=== PATIENT | male | born 1980 | race Caucasian/White ===

== ENCOUNTER 2020-09-07 15:19 | Emergency (ER) | payer MEDICAID, SELFPAY | END 2020-09-07 19:23 | disposition left against medical advice (07) | PROVIDERS: Emergency Provider Emergency Medicine | DX: Z20.2 Contact with and (suspected) exposure to infections with a predominantly sexual mode of transmission (principal) ==

== ENCOUNTER 2020-09-08 02:38 | Inpatient (IN) | payer MEDICAID, SELFPAY ==
--- NOTE | ~2020-09-08 | US_ITS ---
EXAMINATION: US SCROTUM CLINICAL INFORMATION: Pain with swelling and erythema. COMPARISON: September 21, 2018 TECHNIQUE: A sonogram of the scrotum was performed assessing parsons-scale appearance and color Doppler flow. Spectral Doppler analysis of the arterial and venous flow were performed in the testes bilaterally. FINDINGS: RIGHT: Right testicle measures 4.2 x 3.1 x 3.6 cm, volume 23.1 mL. No focal testicular parenchymal lesions are visualized. Spectral Doppler analysis of the arterial and venous flow is patent in the right testis. There is increased vascularity present to both the testicle and epididymis. Right epididymal head is normal in size. No varicocele is seen. No hydrocele present. Right epididymal Doppler flow is increased. LEFT: Left testicle measures 5.0 x 3.1 x 2.6 cm, volume 20.6 mL. No focal testicular parenchymal lesions are visualized. Spectral Doppler analysis of the arterial and venous flow is present in the left testis. There is mildly increased vascular flow within the left testicle. Left epididymal head is normal in size. No varicocele is seen. Small complex hydrocele present. Left epididymal Doppler flow is mildly increased. US/US scrotum doppler IMPRESSION: No suspicious testicular mass. Increased vascular flow to both epididymides and testes, right greater than left, consistent with epididymal orchitis.
--- NOTE | ~2020-09-08 | US_ITS ---
EXAMINATION: US SCROTUM CLINICAL INFORMATION: Pain with swelling and erythema. COMPARISON: September 21, 2018 TECHNIQUE: A sonogram of the scrotum was performed assessing parsons-scale appearance and color Doppler flow. Spectral Doppler analysis of the arterial and venous flow were performed in the testes bilaterally. FINDINGS: RIGHT: Right testicle measures 4.2 x 3.1 x 3.6 cm, volume 23.1 mL. No focal testicular parenchymal lesions are visualized. Spectral Doppler analysis of the arterial and venous flow is patent in the right testis. There is increased vascularity present to both the testicle and epididymis. Right epididymal head is normal in size. No varicocele is seen. No hydrocele present. Right epididymal Doppler flow is increased. LEFT: Left testicle measures 5.0 x 3.1 x 2.6 cm, volume 20.6 mL. No focal testicular parenchymal lesions are visualized. Spectral Doppler analysis of the arterial and venous flow is present in the left testis. There is mildly increased vascular flow within the left testicle. Left epididymal head is normal in size. No varicocele is seen. Small complex hydrocele present. Left epididymal Doppler flow is mildly increased. US/US scrotum IMPRESSION: No suspicious testicular mass. Increased vascular flow to both epididymides and testes, right greater than left, consistent with epididymal orchitis.
[2020-09-08 03:50] VITALS: BP 103/63; PULSE 104; RESP 20; TEMP 36.3; O2SAT 98; BMI 26.2
--- NOTE | 2020-09-08 06:19 | ED.MALEGU ---
HPI - Male Genitourinary General Chief complaint: Urogenital-Male Stated complaint: groin pain Time Seen by Provider: 09/08/20 06:19 Source: patient Mode of arrival: ambulatory History of Present Illness HPI Narrative: This is a 40-year-old male who presents with 3-4 days of increasing redness, swelling, pain to his scrotum as well as dysuria. In addition, he reports subjective fevers. Otherwise, denies any shortness of breath, chest pain, abdominal pain or diarrhea. Related Data Allergies Allergy/AdvReac Type Severity Reaction Status Date / Time No Known Allergies Allergy Unverified 01/05/20 16:51 Review of Systems Review of Systems: Pertinent positives and negatives as stated in HPI 10 point review of systems is otherwise negative. PMFSH Past Medical History Source: nursing notes reviewed Social History Social History Advance Directives: No Advance Directives Information Provided: No Physical Exam Vital Signs: Vital Signs: Last Vital Signs Temp 97.4 F 09/08/20 03:50 Pulse 104 H 09/08/20 03:50 Resp 20 09/08/20 03:50 BP 103/63 09/08/20 03:50 Pulse Ox 98 09/08/20 03:50 Body Mass Index 26.2 VITAL SIGNS: Reviewed. GENERAL: Well developed, well nourished, in no acute distress. HEAD: Normocephalic/atraumatic, EYES: PERRLA, EOMI intact without pain, no nystagmus/pallor/icterus noted EARS: Ext canals without abnormality, TMs non-bulging and non-erythematous NOSE: Nares patent bilateral OROPHARYNX: no oral lesions noted, posterior pharynx clear and non-erythematous without noted tonsillar enlargement/erythema/exudates NECK: Supple, no adenopathy LUNGS: Normal breath sounds. No adventitious sounds or accessory muscle use. SpO2<> CARDIOVASCULAR: Regular rate and rhythm without noted murmurs, no JVD or lower extremity edema. ABDOMEN: Soft, non-tender, non-distended with bowel sounds. No rigidity. No guarding. No palpable masses or hernias noted : Uncircumcised penis, examination of the scrotum demonstrates erythema and swelling without ulceration and minimal tenderness on palpation, there is a large mass/induration of the right testicle without pain along the epididymis. Course Course Course Narrative: 40-year-old male with history and clinical presentation of orchitis doubt testicular torsion but will evaluate with scrotal Doppler as well as STI screening and urinalysis. Basic labs were also ordered. Signed out to Dr Lemus: f/u UA, labs, US
[2020-09-08 07:48] LABS: Glucose Urine UA NEG (NEG); Leukocyte Esterase Urine TRACE (NEG); Nitrite Urine NEG (NEG); PH 6.5 (5.0-8.0); Specific Gravity - Urine 1.025 (1.005-1.025); UACC Culture Trigger YES; Urine Blood 2+ (NEG); Urine Ketones NEG (NEG); Urine Protein 1+ MG/DL (NEG-TRACE)
[2020-09-08 07:49] LABS: Appearance Urine HAZY; Color Urine DARK YELLOW
[2020-09-08 08:00] LABS: Mucus Urine 1+ /LPF; Squamous Epithelial Cell Urine 1+ /LPF; UACC CULT YES
[2020-09-08] MEDS: levoFLOXacin 750 MG TABLET PO (08:47)
[2020-09-08 08:50] VITALS: BP 100/60; PULSE 88; RESP 20; TEMP 37.2; O2SAT 96
[2020-09-08 08:52] LABS: MANUAL DIFF FLAG NO
[2020-09-08 08:55] LABS: Basophils Percent Auto 0.2 % (0-2); Eosinophils Absolute Auto 0.1 X10*3/uL (0.0-0.4); Eosinophils Percent Auto 0.4 % (0-4); Hematocrit 34.8 % (42-52); Hemoglobin 11.6 g/dl (14.0-18.0); Imm Gran Abs Auto 0.11 X10*3/uL (0.00-0.03); Imm Gran Pct Auto 0.6 % (0.0-0.4); Lymphocytes Absolute Auto 2.7 X10*3/uL (1.2-4.9); Mean Corpuscular HGB Conc 33.3 g/dl (31.0-36.0); Mean Corpuscular Hemoglobin 28.9 pg (27.0-33.0); Mean Corpuscular Volume 86.8 fL (80-98); Monocytes Absolute Auto 1.4 X10*3/uL (0.1-1.2); Monocytes Percent Auto 7.2 % (2-11); Neutrophils Absolute Auto 15.2 X10*3/uL (2.0-8.3); Neutrophils Percent Auto 77.6 % (45-73); Platelet Count 221 X10*3/uL (160-400); Red Blood Count 4.01 X10*6/uL (4.60-5.80); Red Cell Distribution Width 12.3 % (11.0-16.0); White Blood Count 19.6 X10*3/uL (4.8-10.8)
--- NOTE | 2020-09-08 09:11 | ED.MALEGU ---
HPI - Male Genitourinary General Chief complaint: Urogenital-Male Stated complaint: groin pain Time Seen by Provider: 09/08/20 06:19 Source: patient Mode of arrival: ambulatory Related Data Previous Rx's Medication Instructions Recorded doxycycline hyclate 100 mg PO Q12H #20 tab 09/08/20 Allergies Allergy/AdvReac Type Severity Reaction Status Date / Time No Known Allergies Allergy Unverified 01/05/20 16:51 [facility] Past Medical History Medical History (Updated 09/08/20 @ 12:05 by Alok Salgado MD) Cocaine abuse Heroin abuse History of gonorrhea Surgical History Status post ORIF of fracture of ankle Social History Social History (Updated 09/08/20 @ 12:05 by Alok Salgado MD) Smoking Status: Current every day smoker Packs Per Day: 1 Substance Use Type: Crack/Cocaine and Heroin Advance Directives: No Advance Directives Information Provided: No Physical Exam Vital Signs: Vital Signs: Last Vital Signs Temp 98.9 F 09/08/20 08:50 Pulse 79 09/08/20 10:37 Resp 20 09/08/20 10:37 BP 103/53 L 09/08/20 10:37 Pulse Ox 97 09/08/20 10:37 Body Mass Index 26.2 Course Reevaluation(s) Reevaluation #1: Patient was signed out to me 07:[address] Mendoza we are waiting for the result today ultrasound, we waiting for the results of the labs as well . Ultrasound showed epididymo-orchitis, I consulted the Urology he recommend admission because elevated white count we will administer IV ceftriaxone and IV doxycycline. Case was discussed with the hospitalist who accepted the patient MDM - Male Genitourinary Lab Data Result diagrams: 09/08/20 08:38 09/08/20 08:38 Labs: Lab Results 09/08/20 09/08/20 09/08/20 Range/Units 07:34 07:34 08:38 WBC 19.6 H (4.8-10.8) X10*3/uL RBC 4.01 L (4.60-5.80) X10*6/uL Hgb 11.6 L (14.0-18.0) g/dl Hct 34.8 L (42-52) % MCV 86.8 (80-98) fL MCH 28.9 (27.0-33.0) pg MCHC 33.3 (31.0-36.0) g/dl RDW 12.3 (11.0-16.0) % Plt Count 221 (160-400) X10*3/uL MPV 9.0 L (9.4-12.4) fL Immature Gran % (Auto) 0.6 H (0.0-0.4) % Neut % (Auto) 77.6 H (45-73) % Lymph % (Auto) 14.0 L (20-40) % [place] % (Auto) 7.2 (2-11) % Eos % (Auto) 0.4 (0-4) % Baso % (Auto) 0.2 (0-2) % Lymph # (Auto) 2.7 (1.2-4.9) X10*3/uL [place] # (Auto) 1.4 H (0.1-1.2) X10*3/uL Eos # (Auto) 0.1 (0.0-0.4) X10*3/uL Baso # (Auto) 0.0 (0.0-0.2) X10*3/uL Abs Immat Gran (auto) 0.11 H (0.00-0.03) X10*3/uL Absolute Neuts (auto) 15.2 H (2.0-8.3) X10*3/uL Absolute Nucleated RBC 0.000 (0.0-0.012) X10*3/uL Nucleated RBC % (auto) 0.0 (0.0-0.2) /100WBC Sodium (135-145) mmol/L Potassium (3.3-5.1) mmol/L Chloride (96-108) mmol/L Carbon Dioxide (22-29) mmol/L Anion Gap (12-20) BUN (9-16) mg/dL Creatinine (0.5-1.4) mg/dL Estim Creat Clear Calc Estimated GFR Random Glucose (60-115) mg/dL Calcium (8.4-10.2) mg/dL Total Bilirubin (0.0-1.0) mg/dL AST (5-37) U/L ALT (0-40) U/L Alkaline Phosphatase (39-117) U/L Total Protein (6.5-8.0) g/dL Albumin (3.5-5.0) g/dL Urine Color DARK YELLOW Urine Appearance HAZY Urine pH 6.5 (5.0-8.0) Ur Specific [place] 1.025 (1.005-1.025) Urine Protein 1+ H (NEG-TRACE) MG/DL Urine Glucose (UA) NEG (NEG) MG/DL Urine Ketones NEG (NEG) MG/DL Urine Blood 2+ H (NEG) Urine Nitrite NEG (NEG) Ur Leukocyte Esterase TRACE H (NEG) Urine RBC 5-9 H (0) /HPF Urine WBC 15-29 H (0-4) /HPF Ur Squamous Epith Cells 1+ /LPF Urine Bacteria NONE /LPF Urine Mucus 1+ /LPF Chlam trachomat DNA PCR NOT DETECTED (Not Detect.) N.gonorrhoeae DNA (PCR) DETECTED A (Not Detect.) 09/08/20 Range/Units 08:38 WBC (4.8-10.8) X10*3/uL RBC (4.60-5.80) X10*6/uL Hgb (14.0-18.0) g/dl Hct (42-52) % MCV (80-98) fL MCH (27.0-33.0) pg MCHC (31.0-36.0) g/dl RDW (11.0-16.0) % Plt Count (160-400) X10*3/uL MPV (9.4-12.4) fL Immature Gran % (Auto) (0.0-0.4) % Neut % (Auto) (45-73) % Lymph % (Auto) (20-40) % [place] % (Auto) (2-11) % Eos % (Auto) (0-4) % Baso % (Auto) (0-2) % Lymph # (Auto) (1.2-4.9) X10*3/uL [place] # (Auto) (0.1-1.2) X10*3/uL Eos # (Auto) (0.0-0.4) X10*3/uL Baso # (Auto) (0.0-0.2) X10*3/uL Abs Immat Gran (auto) (0.00-0.03) X10*3/uL Absolute Neuts (auto) (2.0-8.3) X10*3/uL Absolute Nucleated RBC (0.0-0.012) X10*3/uL Nucleated RBC % (auto) (0.0-0.2) /100WBC Sodium 134 L (135-145) mmol/L Potassium 3.4 (3.3-5.1) mmol/L Chloride 98 (96-108) mmol/L Carbon Dioxide 30 H (22-29) mmol/L Anion Gap 9 L (12-20) BUN 12 (9-16) mg/dL Creatinine 0.68 (0.5-1.4) mg/dL Estim Creat Clear Calc 131.6 Estimated GFR > 60 Random Glucose 107 (60-115) mg/dL Calcium 8.5 (8.4-10.2) mg/dL Total Bilirubin 0.6 (0.0-1.0) mg/dL AST 24 (5-37) U/L ALT 20 (0-40) U/L Alkaline Phosphatase 70 (39-117) U/L Total Protein 7.5 (6.5-8.0) g/dL Albumin 3.5 (3.5-5.0) g/dL Urine Color Urine Appearance Urine pH (5.0-8.0) Ur Specific [place] (1.005-1.025) Urine Protein (NEG-TRACE) MG/DL Urine Glucose (UA) (NEG) MG/DL Urine Ketones (NEG) MG/DL Urine Blood (NEG) Urine Nitrite (NEG) Ur Leukocyte Esterase (NEG) Urine RBC (0) /HPF Urine WBC (0-4) /HPF Ur Squamous Epith Cells /LPF Urine Bacteria /LPF Urine Mucus /LPF Chlam trachomat DNA PCR (Not Detect.) N.gonorrhoeae DNA (PCR) (Not Detect.) Discharge Plan Discharge Clinical Impression: Epididymoorchitis Patient Disposition: Admitted As Inpatient
[2020-09-08 09:37] LABS: Alanine Aminotransferase 20 U/L (0-40); Albumin Level 3.5 g/dL (3.5-5.0); Alkaline Phosphatase 70 U/L (39-117); Anion Gap 9 (12-20); Aspartate Amino Transferase 24 U/L (5-37); Bilirubin Total 0.6 mg/dL (0.0-1.0); Blood Urea Nitrogen 12 mg/dL (9-16); Calcium 8.5 mg/dL (8.4-10.2); Carbon Dioxide 30 mmol/L (22-29); Chloride 98 mmol/L (96-108); Creatinine Clr Calc Pharmacy 131.6; Estimated Glomerular Filt Rate > 60; Glucose Random 107 mg/dL (60-115); Potassium 3.4 mmol/L (3.3-5.1); Sodium 134 mmol/L (135-145); Total Protein 7.5 g/dL (6.5-8.0)
--- NOTE | 2020-09-08 09:55 | PM.UROCN ---
History of Present Illness Consult details Consult date: 09/08/20 Review of Systems Review of Systems: eoidimorchitis Yes all other systems are reviewed and are negative [facility] Social History Social History Advance Directives: No Advance Directives Information Provided: No Meds Allergies Allergy/AdvReac Type Severity Reaction Status Date / Time No Known Allergies Allergy Unverified 01/05/20 16:51 Physical Exam Vital Signs: Vital Signs: Last Vital Signs Temp 98.9 F 09/08/20 08:50 Pulse 88 09/08/20 08:50 Resp 20 09/08/20 08:50 BP 100/60 09/08/20 08:50 Pulse Ox 96 09/08/20 08:50 Body Mass Index 26.2 : Other: epidimorctitis Results Labs Result diagrams: 09/08/20 08:38 09/08/20 08:38 Labs: Abnormal lab results 09/08/20 09/08/20 09/08/20 Range/Units 07:34 08:38 08:38 WBC 19.6 H (4.8-10.8) X10*3/uL RBC 4.01 L (4.60-5.80) X10*6/uL Hgb 11.6 L (14.0-18.0) g/dl Hct 34.8 L (42-52) % MPV 9.0 L (9.4-12.4) fL Immature Gran % (Auto) 0.6 H (0.0-0.4) % Neut % (Auto) 77.6 H (45-73) % Lymph % (Auto) 14.0 L (20-40) % [place] # (Auto) 1.4 H (0.1-1.2) X10*3/uL Abs Immat Gran (auto) 0.11 H (0.00-0.03) X10*3/uL Absolute Neuts (auto) 15.2 H (2.0-8.3) X10*3/uL Sodium 134 L (135-145) mmol/L Carbon Dioxide 30 H (22-29) mmol/L Anion Gap 9 L (12-20) Urine Protein 1+ H (NEG-TRACE) MG/DL Urine Blood 2+ H (NEG) Ur Leukocyte Esterase TRACE H (NEG) Urine RBC 5-9 H (0) /HPF Urine WBC 15-29 H (0-4) /HPF Short CBC 09/08/20 Range/Units 08:38 WBC 19.6 H (4.8-10.8) X10*3/uL Hgb 11.6 L (14.0-18.0) g/dl Hct 34.8 L (42-52) % Plt Count 221 (160-400) X10*3/uL BMP 09/08/20 08:38 Sodium 134 L Potassium 3.4 Chloride 98 Carbon Dioxide 30 H BUN 12 Creatinine 0.68 Calcium 8.5 Liver Function 09/08/20 Range/Units 08:38 Total Bilirubin 0.6 (0.0-1.0) mg/dL AST 24 (5-37) U/L ALT 20 (0-40) U/L Alkaline Phosphatase 70 (39-117) U/L Albumin 3.5 (3.5-5.0) g/dL Urine 09/08/20 Range/Units 07:34 Urine Color DARK YELLOW Urine Appearance HAZY Urine pH 6.5 (5.0-8.0) Ur Specific [place] 1.025 (1.005-1.025) Urine Protein 1+ H (NEG-TRACE) MG/DL Urine Glucose (UA) NEG (NEG) MG/DL All other labs normal. Assessment and Plan (1) Epididymoorchitis: Status: Acute Procedures Date of Service Date of Service: 09/08/20
[2020-09-08 10:21] LABS: CT PCR NOT DETECTED (Not Detect.); NG PCR DETECTED (Not Detect.)
[2020-09-08] MEDS: cefTRIAXone sodium 1 GM in 0.9 % Sodium Chloride 50 ML IV (10:33)
[2020-09-08 10:37] VITALS: BP 103/53; PULSE 79; RESP 20; O2SAT 97
--- NOTE | 2020-09-08 10:40 | PC.NURSE ---
Dr Lemus at bedside and discussingplan for admission for IV abx, pt declines to stay and reports he will leave AMA. Rocephin infusing, Doxy to follow 20g to right wrist.
[2020-09-08] MEDS: Doxycycline Hyclate 100 MG in 0.9 % Sodium Chloride 250 ML 166.67 MG IV (11:09)
--- NOTE | 2020-09-08 11:58 | PM.IMHP ---
History of Present Illness Date of Service: 09/08/20 Chief Complaint: Painful scrotum 40-year-old male with prior history of treated gonorrhea in September 2018 and polysubstance abuse who presents with 4 days of right-sided scrotal swelling, pain, and redness. He endorses dysuria. He has been having fevers as high as 101 along with chills. He denies new sexual partner. He does not have a primary care doctor. He denies chest pain, shortness of breath, or abdominal pain. He endorses nausea. He uses heroin and cocaine and also smokes a pack of cigarettes daily. In the ED, he was noted to be septic with leukocytosis and tachycardia. Urinalysis demonstrated pyuria and microscopic hematuria. US demonstrated increased vascular flow to both epididymides and testes, right greater than left, consistent with epididymo-orchitis. was consulted and admission was recommended for sepsis from epididymo-orchitis. Gonorrhea NAAT was positive. Review of Systems Review of Systems: Yes all other systems are reviewed and are negative [facility] Medical History (Updated 09/08/20 @ 12:05 by Alok Salgado MD) Cocaine abuse Heroin abuse History of gonorrhea Pertinent family history: no diabetes Surgical History Status post ORIF of fracture of ankle Social History (Updated 09/08/20 @ 12:05 by Alok Salgado MD) Smoking Status: Current every day smoker Packs Per Day: 1 Substance Use Type: Crack/Cocaine and Heroin Advance Directives: No Advance Directives Information Provided: No Meds Allergies Allergy/AdvReac Type Severity Reaction Status Date / Time No Known Allergies Allergy Unverified 01/05/20 16:51 Active Medications: Current Medications Generic Name Dose Route Start Last Admin Trade Name Freq PRN Reason Stop Dose Admin Acetaminophen 650 mg 09/08/20 11:51 Acetaminophen 325 Mg Tablet PO Q6H PRN Pain, Mild (Pain Scale 1-3) Clonidine HCl 0.1 mg 09/08/20 11:51 Clonidine Hcl 0.1 Mg Tablet PO TID PRN Opiate Withdrawal Protocol Doxycycline Hyclate 100 mg 09/08/20 11:00 Doxycycline Hyclate 100 Mg Tablet PO Q12H DOTTY Enoxaparin Sodium 40 mg 09/08/20 12:00 Enoxaparin Sodium 40 Mg/0.4 Ml Syringe SUBCUT Q24H [facility] Doxycycline Hyclate 100 mg/ 250 mls @ 166.67 mls/hr 09/08/20 10:32 09/08/20 11:09 Sodium Chloride IV 09/08/20 12:01 166.67 mls/hr ONCE ONE Administration Sodium Chloride 1,000 mls @ 100 mls/hr 09/08/20 12:00 Ns IVCONT .Q10H DOTTY Nicotine 14 mg 09/08/20 11:51 Nicotine 14 Mg Patch.Td24 TRANSDERMA 09/08/20 11:52 ONCE ONE Ondansetron HCl 4 mg 09/08/20 11:51 Ondansetron Hcl 4 Mg/2 Ml Vial IVPUSH Q8H PRN Nausea and Vomiting Sodium Chloride 3 ml 09/08/20 16:00 0.9 % Sodium Chloride Flush 3 Ml Syringe IVFLUSH QSHIFT DOTTY Physical Exam Vital Signs and Narrative: Vital Signs: Last Vital Signs Temp 98.9 F 09/08/20 08:50 Pulse 79 09/08/20 10:37 Resp 20 09/08/20 10:37 BP 103/53 L 09/08/20 10:37 Pulse Ox 97 09/08/20 10:37 Body Mass Index 26.2 Gen: somnolent but arousable, disheveled HEENT: sclera anicteric, dry mucus membranes Neck: supple, no adenopathy Lungs: clear to auscultation bilaterally Heart: regular rate and rhythm, no murmurs Abd: soft, non-tender, non-distended : markedly erythematous, indurated, and swollen right testicle Ext: no edema Skin: warm/well-perfused Neuro: alert and oriented x3, no focal findings Psych: appropriate affect Results Labs CBC and Chem 7: 09/08/20 08:38 09/08/20 08:38 Labs: Laboratory Results - last 24 hr 09/08/20 09/08/20 09/08/20 07:34 07:34 08:38 MCV 86.8 MCH 28.9 MCHC 33.3 RDW 12.3 Plt Count 221 MPV 9.0 L Immature Gran % (Auto) 0.6 H Neut % (Auto) 77.6 H Lymph % (Auto) 14.0 L [place] % (Auto) 7.2 Eos % (Auto) 0.4 Baso % (Auto) 0.2 Lymph # (Auto) 2.7 [place] # (Auto) 1.4 H Eos # (Auto) 0.1 Baso # (Auto) 0.0 Abs Immat Gran (auto) 0.11 H Absolute Neuts (auto) 15.2 H Absolute Nucleated RBC 0.000 Nucleated RBC % (auto) 0.0 Anion Gap Estim Creat Clear Calc Estimated GFR Random Glucose Calcium Total Bilirubin AST ALT Alkaline Phosphatase Total Protein Albumin Urine Color DARK YELLOW Urine Appearance HAZY Urine pH 6.5 Ur Specific [place] 1.025 Urine Protein 1+ H Urine Glucose (UA) NEG Urine Ketones NEG Urine Blood 2+ H Urine Nitrite NEG Ur Leukocyte Esterase TRACE H Urine RBC 5-9 H Urine WBC 15-29 H Ur Squamous Epith Cells 1+ Urine Bacteria NONE Urine Mucus 1+ Chlam trachomat DNA PCR NOT DETECTED N.gonorrhoeae DNA (PCR) DETECTED A 09/08/20 08:38 MCV MCH MCHC RDW Plt Count MPV Immature Gran % (Auto) Neut % (Auto) Lymph % (Auto) [place] % (Auto) Eos % (Auto) Baso % (Auto) Lymph # (Auto) [place] # (Auto) Eos # (Auto) Baso # (Auto) Abs Immat Gran (auto) Absolute Neuts (auto) Absolute Nucleated RBC Nucleated RBC % (auto) Anion Gap 9 L Estim Creat Clear Calc 131.6 Estimated GFR > 60 Random Glucose 107 Calcium 8.5 Total Bilirubin 0.6 AST 24 ALT 20 Alkaline Phosphatase 70 Total Protein 7.5 Albumin 3.5 Urine Color Urine Appearance Urine pH Ur Specific [place] Urine Protein Urine Glucose (UA) Urine Ketones Urine Blood Urine Nitrite Ur Leukocyte Esterase Urine RBC Urine WBC Ur Squamous Epith Cells Urine Bacteria Urine Mucus Chlam trachomat DNA PCR N.gonorrhoeae DNA (PCR) Imaging Radiologist's Impressions: Impressions Scrotum Ultrasound 09/08/20 06:19 IMPRESSION: No suspicious testicular mass. Increased vascular flow to both epididymides and testes, right greater than left, consistent with epididymal orchitis. Scrotum Ultrasound 09/08/20 06:19 IMPRESSION: No suspicious testicular mass. Increased vascular flow to both epididymides and testes, right greater than left, consistent with epididymal orchitis. Assessment and Plan (1) Epididymoorchitis: Status: Acute 40yo M with prior hx of treated gonorrhea presenting with 4 days of testicular swelling and pain and dysuria, found to be septic from gonococcal epididymo-orchitis # gonococcal epididymo-orchitis - ceftriaxone 1g IV given in ED. give doxy 100 mg bid x10d. screen for other STIs- HBV, HCV, HIV, RPR. Advised pt to notify his partners to have them treatd # sepsis - treat source as above. lactate normal. will give IV fluids- appears somewhat dry # heroin abuse # cocaine abuse - prn clonidine + lorazepam; Addiction Medicine + CARE team consults # tobacco abuse - NRT # VTE ppx - LMWH # code - full # dispo - needs PCP
--- NOTE | 2020-09-08 13:02 | PC.NURSE ---
Pt appears to be guarding and uncomfortable to abd, hardened area noted to RLQ
--- NOTE | 2020-09-08 14:05 | PC.NURSE ---
Pt request to leave AMA, spoke to hospitalist and despite education pt continues still request to leave. Pt changed into own attire and IV removed.
--- NOTE | 2020-09-22 16:21 | P.DS_ITS ---
DS: Providers Provider Date of Service: 09/08/20 Date of admission: 09/08/20 11:52 Primary care physician: None Physician Consults: 09/08/20 11:51 Addiction Medicine Routine Consulting Provider: Lisset Farnsworth Reason for consultation: polysubstane abuse 09/08/20 12:05 Consult to Care Team Routine Comment: Reason for consultation: heroin + cocaine abse DS: Diagnosis Discharge Diagnosis (1) Epididymoorchitis: Status: Acute (2) Sepsis: Status: Acute (3) Gonorrhea: Status: Acute (4) Intravenous drug abuse: Status: Acute (5) Left against medical advice: Status: Acute DS: Medications Discharge Medications Home Medications: Previous Rx's Medication Instructions Recorded doxycycline hyclate 100 mg PO Q12H #20 tab 09/08/20 DS: Summary Hospital Course Hospital Course: from my H+P, 09/08/20: 40-year-old male with prior history of treated gonorrhea in September 2018 and polysubstance abuse who presents with 4 days of right-sided scrotal swelling, pain, and redness. He endorses dysuria. He has been having fevers as high as 101 along with chills. He denies new sexual partner. He does not have a primary care doctor. He denies chest pain, shortness of breath, or abdominal pain. He endorses nausea. He uses heroin and cocaine and also smokes a pack of cigarettes daily. In the ED, he was noted to be septic with leukocytosis and tachycardia. Urinalysis demonstrated pyuria and microscopic hematuria. US demonstrated increased vascular flow to both epididymides and testes, right greater than left, consistent with epididymo-orchitis. was consulted and admission was recommended for sepsis from epididymo-orchitis. Gonorrhea NAAT was positive. Unfortunately, the patient decided to sign out against medical advice before even making it up to the medical-surgical floor. I could not convince him otherwise. I counseled him on the risks of sepsis and incompletely treated infection and in an attempt at harm reduction, sent a prescription for doxycycline 100 mg PO BID x10d to a local pharmacy. I advised him to abstain from sexual activity until 7d after completing treatment, to notify his sexual partners to get treated for gonorrhea, to seek testing for other STIs, and to seek help for his substance abuse disorder. Time Spent with Patient Time attestation: Total time spent providing and/or coordinating discharge services: 20 Discharge coordination time: Less than 30 minutes Quality: Stroke Does the patient have a stroke diagnosis?: No Physical Exam Vital Signs: Vital Signs: Last Vital Signs Temp 98.9 F 09/08/20 08:50 Pulse 79 09/08/20 10:37 Resp 20 09/08/20 10:37 BP 103/53 L 09/08/20 10:37 Pulse Ox 97 09/08/20 10:37 Body Mass Index 26.2 Gen: somnolent but arousable, disheveled HEENT: sclera anicteric, dry mucus membranes Neck: supple, no adenopathy Lungs: clear to auscultation bilaterally Heart: regular rate and rhythm, no murmurs Abd: soft, non-tender, non-distended : markedly erythematous, indurated, and swollen right testicle Ext: no edema Skin: warm/well-perfused Neuro: alert and oriented x3, no focal findings Psych: appropriate affect DS: Data Data Completed and Pending Completed studies during hospitalization [Text1]: Laboratory Results WBC 19.6 X10*3/uL (4.8-10.8) H 09/08/20 08:38 RBC 4.01 X10*6/uL (4.60-5.80) L 09/08/20 08:38 Hgb 11.6 g/dl (14.0-18.0) L 09/08/20 08:38 Hct 34.8 % (42-52) L 09/08/20 08:38 MCV 86.8 fL (80-98) 09/08/20 08:38 MCH 28.9 pg (27.0-33.0) 09/08/20 08:38 MCHC 33.3 g/dl (31.0-36.0) 09/08/20 08:38 RDW 12.3 % (11.0-16.0) 09/08/20 08:38 Plt Count 221 X10*3/uL (160-400) 09/08/20 08:38 MPV 9.0 fL (9.4-12.4) L 09/08/20 08:38 Immature Gran % (Auto) 0.6 % (0.0-0.4) H 09/08/20 08:38 Neut % (Auto) 77.6 % (45-73) H 09/08/20 08:38 Lymph % (Auto) 14.0 % (20-40) L 09/08/20 08:38 [place] % (Auto) 7.2 % (2-11) 09/08/20 08:38 Eos % (Auto) 0.4 % (0-4) 09/08/20 08:38 Baso % (Auto) 0.2 % (0-2) 09/08/20 08:38 Lymph # (Auto) 2.7 X10*3/uL (1.2-4.9) 09/08/20 08:38 [place] # (Auto) 1.4 X10*3/uL (0.1-1.2) H 09/08/20 08:38 Eos # (Auto) 0.1 X10*3/uL (0.0-0.4) 09/08/20 08:38 Baso # (Auto) 0.0 X10*3/uL (0.0-0.2) 09/08/20 08:38 Abs Immat Gran (auto) 0.11 X10*3/uL (0.00-0.03) H 09/08/20 08:38 Absolute Neuts (auto) 15.2 X10*3/uL (2.0-8.3) H 09/08/20 08:38 Absolute Nucleated RBC 0.000 X10*3/uL (0.0-0.012) 09/08/20 08:38 Nucleated RBC % (auto) 0.0 /100WBC (0.0-0.2) 09/08/20 08:38 Sodium 134 mmol/L (135-145) L 09/08/20 08:38 Potassium 3.4 mmol/L (3.3-5.1) 09/08/20 08:38 Chloride 98 mmol/L (96-108) 09/08/20 08:38 Carbon Dioxide 30 mmol/L (22-29) H 09/08/20 08:38 Anion Gap 9 (12-20) L 09/08/20 08:38 BUN 12 mg/dL (9-16) 09/08/20 08:38 Creatinine 0.68 mg/dL (0.5-1.4) 09/08/20 08:38 Estim Creat Clear Calc 131.6 09/08/20 08:38 Estimated GFR > 60 09/08/20 08:38 Random Glucose 107 mg/dL (60-115) 09/08/20 08:38 Calcium 8.5 mg/dL (8.4-10.2) 09/08/20 08:38 Total Bilirubin 0.6 mg/dL (0.0-1.0) 09/08/20 08:38 AST 24 U/L (5-37) 09/08/20 08:38 ALT 20 U/L (0-40) 09/08/20 08:38 Alkaline Phosphatase 70 U/L (39-117) 09/08/20 08:38 Total Protein 7.5 g/dL (6.5-8.0) 09/08/20 08:38 Albumin 3.5 g/dL (3.5-5.0) 09/08/20 08:38 Urine Color DARK YELLOW 09/08/20 07:34 Urine Appearance HAZY 09/08/20 07:34 Urine pH 6.5 (5.0-8.0) 09/08/20 07:34 Ur Specific [place] 1.025 (1.005-1.025) 09/08/20 07:34 Urine Protein 1+ MG/DL (NEG-TRACE) H 09/08/20 07:34 Urine Glucose (UA) NEG MG/DL (NEG) 09/08/20 07:34 Urine Ketones NEG MG/DL (NEG) 09/08/20 07:34 Urine Blood 2+ (NEG) H 09/08/20 07:34 Urine Nitrite NEG (NEG) 09/08/20 07:34 Ur Leukocyte Esterase TRACE (NEG) H 09/08/20 07:34 Urine RBC 5-9 /HPF (0) H 09/08/20 07:34 Urine WBC 15-29 /HPF (0-4) H 09/08/20 07:34 Ur Squamous Epith Cells 1+ /LPF 09/08/20 07:34 Urine Bacteria NONE /LPF 09/08/20 07:34 Urine Mucus 1+ /LPF 09/08/20 07:34 Chlam trachomat DNA PCR NOT DETECTED (Not Detect.) 09/08/20 07:34 N.gonorrhoeae DNA (PCR) DETECTED (Not Detect.) A 09/08/20 07:34 Impressions Scrotum Ultrasound 09/08/20 06:19 IMPRESSION: No suspicious testicular mass. Increased vascular flow to both epididymides and testes, right greater than left, consistent with epididymal orchitis. Discharge Plan Discharge Patient Disposition: Left Against Medical Advice Discharge Diagnosis: gonococcal epidydimo-orchitis Referrals: Physician,None [Primary Care Provider] - 1 Week Discharge Medications: New doxycycline hyclate 100 mg Tablet 100 mg PO Q12H Qty: 20 RF: 0 Discharge Orders: Discharge Order (Routine); Ordered 09/22/20 Ordered By: Alok Salgado Care Plan Goals: cure your STI Health Concerns: sepsis from STI Plan of Treatment: return to the hospital as soon as possible to continue treatment If you do not return to the hospital, at least take doxycycline 100 mg by mouth twice daily for 10 days and inform your sexual partners to get treated for gonorrhea and abstain from sexual relations for at least 1 week after treatment. Use condoms for all sexual activity. Get tested for other STDs including syphilis, HIV, and hepatitis Seek help for your serious substance abuse disorder Assessment: as above Discharge Date/Time: 09/08/20 14:20
== END 2020-09-08 14:20 | disposition left against medical advice (07) | DRG 728 ==
LOC: HO.ED 10:35 → HO.EDOVER 12:31
PROVIDERS: Student in an Organized Health Care Education/Training Program; Admitting Provider Family Medicine; Emergency Provider Emergency Medicine; Visit Provider Family Medicine
DX: A54.23 Gonococcal infection of other male genital organs (principal); N45.3 Epididymo-orchitis; F17.210 Nicotine dependence, cigarettes, uncomplicated; Z71.6 Tobacco abuse counseling; F11.10 Opioid abuse, uncomplicated; F14.10 Cocaine abuse, uncomplicated
CPT/HCPCS: 36415; 76870; 80053; 81001; 81003; 85025; 87086; 87491; 87591; 93975; 96365; 96366; 96368; 96375; 99219; 99281; 99285; J0696

== ENCOUNTER 2025-01-23 20:49 | Emergency (ER) | payer MEDICAID, SELFPAY ==
--- NOTE | 2025-01-23 21:02 | PC.NURSE ---
upon arrival to ED patient stated he did not want to stay in ED for evaluation. patient was not given narcan. alert and awake. ambulating with steady gait. patient seen upon arrival by Dr Shi who will dc patient.
--- OUTSIDE RECORDS SUMMARY | 2025-01-23 21:08 | XMS_ITS | Clinical Summary ---
Author Organization [facility] [place] [address] Care Team Providers Care Elementary Assistant Principal Name Role Phone Unavailable Primary Care Provider Unavailabl e Social History Tobacco Use Types Packs/Day Years Used Date Smoking Tobacco: Never Assessed Sex and Gender Information Value Date Recorded Sex Assigned at Not on file Legal Sex Male 1:33 AM EST Gender Identity Not on file Sexual Orientation Not on file Plan of Treatment Health Maintenance Due Date Last Done Comments DTaP,Tdap,and Td Vaccines (1 - Tdap) 2000 Hepatitis B Vaccines (1 of 3 - 19+ 3-dose series) 2000 HPV Vaccines (1 - 3-dose SCD M series) 2008 Depression Screening 04/20/2024 COVID-19 Vaccine (1 - 2023-2 5 season) 2024 Influenza Vaccine (#1) 2024 RSV Immunization Adult Patie nts (1 - 1-dose 75+ series) 2056 HIB Vaccines Aged Out No longer eligi ble based on patient's age to complete this topic Hepatitis A Vaccines Aged Out No long er eligible based on patient's age to complete this topic IPV Vaccines Aged Out No longer eligi ble based on patient's age to complete this topic MMR Vaccines Aged Out No longer eligi ble based on patient's age to complete this topic Meningococcal ACWY Vaccine Aged Out N o longer eligible based on patient's age to complete this topic Meningococcal B Vaccine Aged Out No l onger eligible based on patient's age to complete this topic Pneumococcal Vaccine: Pediat rics (0 to 5 Years) and At-Risk Patients (6 to 49 Years) Aged Out No longer eligible b ased on patient's age to complete this topic RSV Immunization Patients Un pascual 20 months Aged Out No longer eligible b ased on patient's age to complete this topic Varicella Vaccines Aged Out No longer eligible based on patient's age to complete this topic
--- OUTSIDE RECORDS SUMMARY | 2025-01-23 21:09 | XMS_ITS | Clinical Summary ---
Author Organization [employer] Address [address] [facility] [address] [facility] [address] [place] [address] Care Team Providers Care Service Now Developer Name Role Phone Unavailable Primary Care Provider Unavailabl e Social History Tobacco Use Types Packs/Day Years Used Date Smoking Tobacco: Never Assessed Sex and Gender Information Value Date Recorded Sex Assigned at Not on file Legal Sex Male 1:47 PM EST Gender Identity Not on file Sexual Orientation Not on file Plan of Treatment Health Maintenance Due Date Last Done Comments Depression Screening 1981 HIV Screening 1981 Lipid Panel 1981 SDOH Screening 1981 Disability Screening 1981 Alcohol/Substance Use Screening 1993 Tobacco Screening 1993 Family Planning (PISQ) 1996 HPV Vaccines (1 - Male 3-dos e series) 1996 Hepatitis C Screening 1999 DTaP/Tdap/Td Vaccines (1 - Tdap) 2000 Hepatitis B Vaccines (1 of 3 - 19+ 3-dose series) 2000 COVID-19 Vaccine (1 - 2023-2 5 season) 2024 Influenza Vaccine (#1) 2024 Zoster Vaccines (1 of 2) 2031 RSV Patients and Pa tients Aged 60 years or older (1 - 1-dose 75+ series) 2056 HIB [...] patient's age to complete this topic Meningococcal Vaccine Aged Out No nilsa thuan eligible based on patient's age to complete this topic Pneumococcal Vaccine: Pediat rics (0 to 5 Years) and At-Risk Patients (6 to 49) Years Aged Out No longer eligible b ased on patient's age to complete this topic RSV under 20 months Aged Out No longe r eligible based on patient's age to complete this topic Rotavirus Vaccines Aged Out No longer eligible based on patient's age to complete this topic
--- NOTE | 2025-01-23 21:10 | ED.GENADULT ---
HPI - General Adult General Stated complaint: OD Time Seen by Provider: 01/23/25 21:02 Source: patient Mode of arrival: ambulatory Limitations: no limitations Related Data Previous Rx's ?Medication ?Instructions ?Recorded doxycycline hyclate 100 mg tablet 100 mg PO Q12H #20 tabs 09/08/20 Allergies Allergy/AdvReac Type Severity Reaction Status Date / Time No Known Allergies Allergy Unverified 01/05/20 16:51 [facility] Past Medical History Medical History (Updated 01/23/25 @ 21:26 by Thais Shi MD) Cocaine abuse Heroin abuse History of gonorrhea Surgical History Status post ORIF of fracture of ankle Social History Social History (Updated 09/08/20 @ 12:05 by Alok Salgado MD) Cigarette Packs Per Day: 1 Substance Use Type: Crack/Cocaine and Heroin Advance Directives: No Advance Directives Information Provided: Yes Medical Decision Making Medical Decision Making MDM Narrative: I was informed by the patient's nurse that his blood pressures in the 80s. Is awake, alert and oriented x3, coherent, ambulatory. Prior to arrival, patient did not get any Narcan. Patient states that he did not asked to come here. Patient states that tonight he went to sleep, someone found him in he was brought in. Patient states that he did not overdose. Patient states that he does not want any medical treatment at all. We tried talking to the patient to stay at least until his blood pressure improves. Food has been offered. Patient states that he will take the food but he will not take any medical treatment and does not want anymore blood pressures to be taken. Patient states that he feels well. Patient denies SI or HI Despite patient's blood pressure in the 80s, patient is mentating within normal limits, patient is coherent. At this time, there is no indication to section 12 the patient. Patient's low blood pressure is most likely secondary to narcotic abuse. Patient denies any URI or UTI symptoms, no skin abscesses, no abdominal pain. Sepsis is not suspected. Critical Care Time Critical Care Time Critical Care Time: Yes Total Critical Care Time: 35 Attestation: I have personally provided critical care time. Time includes review of lab data, radiology results, discussion with consultants, and monitoring for potential decompensation. Intervention performed as documented. Discharge Plan Discharge Clinical Impression: Intravenous drug abuse, Acute hypotension Patient Disposition: Left Against Medical Advice Instructions: Polysubstance Use Disorder (ED) Additional Instructions: Opiate use disorder You were seen in our Emergency Department today for treatment of opiate use disorder. You may have been dosed with medication for opiate use disorder (MOUD) in the form of suboxone or methadone. You may experience feeling some withdrawal symptoms and this is normal. The? dose in the Emergency Department is a starting dose and meant to be titrated up once you follow up with a clinic. Please do not feel discouraged, it is a process. The nurse has reviewed with you where to follow up and what information to bring with you, to continue treatment. You also may have been given naloxone (narcan) to take home with you. This medication is used to potentially treat opiate overdose. If you decide you want to stop or cut down on how much you?re using, you can call or walk into our outpatient Addiction Treatment office: [facility] (M-F 9am-5p) [address] [place] [address], [address] [phone] You may have been provided with safer injection?items, please take time to take care of YOU and your health. Use new supplies whenever possible to lessen the chances of infections and other illnesses.? ?If you need more supplies, please go [facility],? [address] [place] [address] OR you can call or text to coordinate delivery of safer supplies. You were also provided a list of several treatment providers in the area.? If you experience any worsening symptoms you cannot control please return to the ED or call 911. Please follow up at your next appointment. Things to look out for are fevers, chest pain, shortness of breath, severe pain, dizziness, fainting or any other concerns. Prescriptions: No Action doxycycline hyclate 100 mg Tablet 100 mg PO Q12H Qty: 20 0RF Stand Alone Forms: Against Medical Advice Print Language: Gabonese
--- NOTE | 2025-01-23 21:23 | PC.NURSE ---
patient BP low when vitals checked. provider back to see patient. patient remains awake and alert. all other vitals stable. patient declines to stay in ED to have BP monitored. patient will be given AMA paperwork to sign.
[2025-01-23 21:28] VITALS: BP 83/51; PULSE 75; RESP 16; TEMP 36.7; O2SAT 97
== END 2025-01-23 21:29 | disposition left against medical advice (07) ==
PROVIDERS: Emergency Provider Emergency Medicine
DX: I95.9 Hypotension, unspecified (principal); F19.10 Other psychoactive substance abuse, uncomplicated; Z53.29 Procedure and treatment not carried out because of patient's decision for other reasons
CPT/HCPCS: 99281